=== PATIENT | female | born 1990 | race Caucasian/White ===

== ENCOUNTER 2018-05-23 21:49 | Observation (INO) | payer MEDICAID ==
[2018-05-23 21:49] VITALS: BMI 30.1
--- NOTE | 2018-05-23 21:55 | C.PDOC ---
History Of Present Illness 27 yr old female w/ hx of depression, iron def. anemia, asthma p/w headache. Pt notes headache started at 1pm today after taking too much of her trazodone. She notes that she was supposed to be taking 50mg of trazodone daily for depression, but accidentally took 200mg. She notes falling after feeling drowsy while taking her trazodone and notes head impact without LOC. No blood thinner usage. No pain in any other part of her body. No abdominal pain, chest pain, shortness of breath, constipation, diarrhea, dark or bloody stool, palpitations or GI or complaints. No fever, chills or night sweats. She denies any SI or HI. No FND. Headache is not worst of life, not sudden in onset, and without any FND. She denies any neck stiffness. No other complaints. Time Seen by Provider: 05/23/18 21:54 Chief Complaint (Nursing): Headache Past Medical History - Medical History PMH: Anxiety, Asthma, Gastritis, GERD - [facility] Procedures DELIVERY OF PRODUCTS OF CONCEPTION, EXTERNAL APPROACH (03/29/15) MONITORING OF POC, CARDIAC ELECTR ACTIVITY, REFUELING RAMPMAN APPROACH (03/29/15) Family History: States: Unknown Family Hx - Social History Hx Tobacco Use: No Hx Alcohol Use: No Hx Substance Use: No - Immunization History Hx Tetanus Toxoid Vaccination: Yes Hx Influenza Vaccination: No Hx Pneumococcal Vaccination: No Review Of Systems Constitutional: Negative for: Fever, Chills, Sweats, Weakness, Malaise Eyes: Negative for: Pain, Vision Change ENT: Negative for: Ear Pain, Ear Discharge, Nose Pain, Nose Discharge, Nose Congestion, Mouth Pain, Mouth Swelling Cardiovascular: Negative for: Chest Pain, Palpitations, Orthopnea, Edema, Light Headedness Respiratory: Negative for: Cough, Shortness of Breath, SOB with Excertion Gastrointestinal: Negative for: Nausea, Vomiting, Abdominal Pain, Diarrhea, Constipation, Melena, Hematochezia Genitourinary: Negative for: Dysuria, Frequency Musculoskeletal: Negative for: Neck Pain, Shoulder Pain, Arm Pain, Back Pain, Hand Pain, Leg Pain Skin: Negative for: Rash, Lesions, Jaundice Neurological: Positive for: Headache. Negative for: Weakness, Numbness, Incoordination, Change in Speech, Confusion, Seizures, Altered Mental Status Psych: Negative for: Anxiety, Depression, Psychosis, Suicidal ideation Physical Exam - Physical Exam Appears: Well, Non-toxic, No Acute Distress Skin: Normal Color, Warm Head: Atraumatic, Normacephalic Eye(s): bilateral: Normal Inspection, PERRL, EOMI Ear(s): Bilateral: Normal Nose: Normal, No Flaring, No Discharge Oral Mucosa: Moist Tongue: Normal Appearing, No Swelling, No Lesions Lips: Normal Appearing Teeth: Normal Dentition Gingiva: Normal Appearing Throat: Normal, No Erythema, No Exudate Neck: Normal, Normal ROM, Trachea Midline, No Midline Cervical Tenderness, Supple, Other (no meningeal signs) Lymphatic: Normal Exam, No Adenopathy Chest: Symmetrical, No Deformity, No Tenderness Cardiovascular: Rhythm Regular, No Edema, No Friction Rub, No Murmur, No JVD Respiratory: Normal Breath Sounds, No Accessory Muscle Use, No Rales, No Rhonchi, No Stridor, No Wheezing, No Plerual Rub Gastrointestinal/Abdominal: Normal Exam, Soft, No Tenderness, No Organomegaly, No Mass, No Distention, No Guarding, No Rebound, No Hernia Back: Normal Inspection, No CVA Tenderness, No Vertebral Tenderness Extremity: Normal ROM, No Tenderness, No Swelling Extremity: Bilateral: Atraumatic, Normal Color And Temperature, Normal ROM Pulses: Left Radial: Normal, Right Radial: Normal Neurological/Psych: Oriented x3, Normal Speech, Normal Cognition, Normal Cranial Nerves, No Cerebellar Signs, Normal Motor Gait: Steady ED Course And Treatment - Laboratory Results Result Diagrams: 05/23/18 22:09 05/23/18 22:09 Medical Decision Making Medical Decision Makin yr old F w/ hx of depression, anemia, asthma p/w headache. Headache after ingesting trazodone 200mg, without FND. No neuro abnls noted on exam, pt still notes HEDRICK however. No meningeal signs on exam. No fever. No signs of trauma on exam. No eye complaints. Will likely require crisis eval for "accidental" OD in the setting of pts known depression. No SOB or pallor on exam. Pending, labs + imaging 2308 CT unremarkable Crisis to evaluate patient EK, NSR, no stemi, no long QT pt endorsed continued HEDRICK, much improved but given continued HEDRICK, and recc from poison control for supportive care will needs obs appreciate consult w/ Dr. Barrett- to admit to his service Disposition - Disposition Disposition Time: 23:10 Condition: STABLE - Clinical Impression Clinical Impression: Headache, Overdose of trazodone, Drug induced headache
[2018-05-23] MEDS ORDERED: Sodium Chloride 0.9% 1,000 ML IV ONE (22:04)
[2018-05-23 22:12] LABS: BASO % 0.5 % (0.0-2.0); EOS # 0.1 K/uL (0.0-0.7); HEMOGLOBIN 11.8 g/dL (11.0-16.0); LYMPH # 2.1 K/uL (1.0-4.3); LYMPH % 23.3 % (20.0-40.0); MEAN CORPUSCULAR HEMOGLOBIN 25.4 pg (27.0-31.0); MEAN CORPUSCULAR HGB CONC 32.9 g/dL (33.0-37.0); MEAN PLATELET VOLUME 8.9 fL (7.2-11.7); MONO # 0.6 K/uL (0.0-0.8); MONO % 6.9 % (0.0-10.0); NEUT % 68.3 % (50.0-75.0); RBC 4.67 Mil/uL (3.80-5.20); RED CELL DISTRIBUTION WIDTH 20.5 % (11.5-14.5); WHITE BLOOD COUNT 8.8 K/uL (4.8-10.8)
[2018-05-23 22:16] LABS: MEAN CELL VOLUME 77.2 fL (81.0-99.0)
[2018-05-23 22:23] LABS: ACETAMINOPHEN < 10.0 ug/mL (10.0-30.0); SALICYLATE < 1.0 {null, mg/dL 1}
[2018-05-23 22:25] LABS: ALB/GLOB RATIO 1.5 (1.0-2.1); ALBUMIN 4.6 g/dL (3.5-5.0); ALT/SGPT 19 U/L (9-52); AST/SGOT 15 U/L (14-36); BLOOD UREA NITROGEN 12 mg/dL (7-17); CALCIUM 8.4 mg/dl (8.6-10.4); GFR NON-AFRICAN AMERICAN > 60
[2018-05-24 01:16] LABS: SQUAMOUS EPITHIAL 2 /hpf (0-5); URINE BILIRUBIN NEGATIVE (NEGATIVE); URINE BLOOD NEGATIVE (NEGATIVE); URINE CLARITY Clear (Clear); URINE COLOR Yellow (YELLOW); URINE GLUCOSE (UA) NORMAL (Normal); URINE LEUKOCYTE ESTERASE NEG Leu/uL (Negative); URINE PROTEIN 1+ mg/dL (NEGATIVE); URINE UROBILINOGEN NORMAL mg/dL (0.2-1.0)
[2018-05-24 01:34] LABS: BARBITURATES, UR NEGATIVE (NEGATIVE); BENZODIAZEPINES, UR NEGATIVE (NEGATIVE); OPIATES, UR NEGATIVE (NEGATIVE); PHENCYCLIDINE, UR NEGATIVE (NEGATIVE)
[2018-05-24] MEDS: Sodium Chloride 0.9% 1,000 ML IV SCH ×2 (09:08→19:23)
[2018-05-24] MEDS: Pantoprazole 40 mg EC Tab PO SCH (10:08)
--- NOTE | 2018-05-24 15:20 | CT ---
Date of service: 05/23/2018 PROCEDURE: CT HEAD WITHOUT CONTRAST. HISTORY: headache after accidental wellbutrin od COMPARISON: None available. TECHNIQUE: Axial computed tomography images were obtained through the head/brain without intravenous contrast. Radiation dose: Total exam DLP = 1052.85 mGy-cm. This CT exam was performed using one or more of the following dose reduction techniques: Automated exposure control, adjustment of the mA and/or kV according to patient size, and/or use of iterative reconstruction technique. FINDINGS: HEMORRHAGE: No intracranial hemorrhage. BRAIN: No mass effect or edema. No atrophy or chronic microvascular ischemic changes. VENTRICLES: Unremarkable. No hydrocephalus. CALVARIUM: Unremarkable. PARANASAL SINUSES: Unremarkable as visualized. No significant inflammatory changes. MASTOID AIR CELLS: Unremarkable as visualized. No inflammatory changes. OTHER FINDINGS: None. IMPRESSION: Normal CT of the Head. No intracranial mass, hemorrhage or evidence of acute infarct. The preliminary findings for this examination were reported by [facility] at 11:02 p.m. on 05/23/2018. There is concurrence of this report with the preliminary findings.
--- NOTE | 2018-05-24 15:32 | CT ---
Date of service: 05/23/2018 PROCEDURE: CT Cervical Spine without contrast HISTORY: sanz after wellbutrin od COMPARISON: None available. TECHNIQUE: Axial computed tomography images were obtained of the cervical spine without the use of intravenous contrast. Coronal and sagittal reformatted images were created and reviewed. Radiation dose: Total exam DLP = 476.51 mGy-cm. This CT exam was performed using one or more of the following dose reduction techniques: Automated exposure control, adjustment of the mA and/or kV according to patient size, and/or use of iterative reconstruction technique. FINDINGS: VERTEBRAE: The vertebral bodies are maintained in height. Normal alignment is maintained. There is straightening of the normal lordotic curvature indicating possible muscular spasm. The atlantoaxial articulation and odontoid process are intact. DISCS/SPINAL CANAL/NEURAL FORAMINA: No significant central canal or neural foraminal stenosis. Discs heights are grossly preserved. PARASPINAL SOFT TISSUES: Unremarkable. OTHER FINDINGS: None. IMPRESSION: Possible muscular spasm. Otherwise unremarkable examination. The preliminary findings for this examination were reported by [facility] at 11:02 p.m. on 05/23/2018. There is concurrence of this report with the preliminary findings.
--- NOTE | 2018-05-24 15:37 | CP.PCM.HP ---
Present on Admission - Present on Admission Any Indicators Present on Admission: No Past Patient History - Infectious Disease Hx of Infectious Diseases: None - Past Social History Smoking Status: Never Smoked - PULMONARY Hx Asthma: Yes - GASTROINTESTINAL Hx Gastritis: Yes - PSYCHIATRIC Hx Anxiety: Yes Hx Substance Use: No - ANESTHESIA Hx Anesthesia: No Meds Allergies/Adverse Reactions: Allergies Allergy/AdvReac Type Severity Reaction Status Date / Time Doxycycline Allergy Mild SWELLING Uncoded 05/23/18 22:03 Physical Exam - Constitutional Appears: Well - Head Exam Head Exam: ATRAUMATIC, NORMAL INSPECTION, NORMOCEPHALIC - Eye Exam Eye Exam: EOMI, Normal appearance, PERRL Pupil Exam: NORMAL ACCOMODATION, PERRL - ENT Exam ENT Exam: Mucous Membranes Moist, Normal Exam - Neck Exam Neck exam: Positive for: Normal Inspection - Respiratory Exam Respiratory Exam: Decreased Breath Sounds - Cardiovascular Exam Cardiovascular Exam: REGULAR RHYTHM, +S1, +S2 - GI/Abdominal Exam GI & Abdominal Exam: Diminished Bowel Sounds, Soft - Rectal Exam Rectal Exam: Deferred Results - Vital Signs Recent Vital Signs: Last Vital Signs Temp 98.4 F 05/24/18 07:38 Pulse 74 05/24/18 07:38 Resp 20 05/24/18 07:38 BP 93/57 L 05/24/18 07:38 Pulse Ox 100 05/24/18 12:00 - Labs Result Diagrams: 05/23/18 22:09 05/23/18 22:09 Labs: Laboratory Results - last 24 hr 05/23/18 05/23/18 05/23/18 22:09 22:09 22:09 WBC 8.8 RBC 4.67 Hgb 11.8 Hct 36.0 MCV 77.2 L D MCH 25.4 L MCHC 32.9 L RDW 20.5 H Plt Count 237 MPV 8.9 Neut % (Auto) 68.3 Lymph % (Auto) 23.3 [place] % (Auto) 6.9 Eos % (Auto) 1.0 Baso % (Auto) 0.5 Neut # (Auto) 6.0 Lymph # (Auto) 2.1 [place] # (Auto) 0.6 Eos # (Auto) 0.1 Baso # (Auto) 0.0 Sodium 136 Potassium 3.9 Chloride 101 Carbon Dioxide 25 Anion Gap 13 BUN 12 Creatinine 0.6 L Est GFR ( Amer) > 60 Est GFR (Non-Af Amer) > 60 Random Glucose 92 Calcium 8.4 L Phosphorus 3.2 Magnesium 1.9 Total Bilirubin 0.3 AST 15 ALT 19 Alkaline Phosphatase 48 Total Protein 7.6 Albumin 4.6 Globulin 3.0 Albumin/Globulin Ratio 1.5 Urine Color Urine Clarity Urine pH Ur Specific [place] Urine Protein Urine Glucose (UA) Urine Ketones Urine Blood Urine Nitrate Urine Bilirubin Urine Urobilinogen Ur Leukocyte Esterase Urine RBC (Auto) Ur Squamous Epith Cells Salicylates < 1.0 Urine Opiates Screen Urine Methadone Screen Acetaminophen < 10.0 L Ur Barbiturates Screen Ur Phencyclidine Scrn Ur Amphetamines Screen U Benzodiazepines Scrn U Oth Cocaine Metabols U Cannabinoids Screen Alcohol, Quantitative < 10 05/24/18 05/24/18 01:03 01:03 WBC RBC Hgb Hct MCV MCH MCHC RDW Plt Count MPV Neut % (Auto) Lymph % (Auto) [place] % (Auto) Eos % (Auto) Baso % (Auto) Neut # (Auto) Lymph # (Auto) [place] # (Auto) Eos # (Auto) Baso # (Auto) Sodium Potassium Chloride Carbon Dioxide Anion Gap BUN Creatinine Est GFR ( Amer) Est GFR (Non-Af Amer) Random Glucose Calcium Phosphorus Magnesium Total Bilirubin AST ALT Alkaline Phosphatase Total Protein Albumin Globulin Albumin/Globulin Ratio Urine Color Yellow Urine Clarity Clear Urine pH 8.0 Ur Specific [place] 1.017 Urine Protein 1+ H Urine Glucose (UA) Normal Urine Ketones 1+ H Urine Blood Negative Urine Nitrate Negative Urine Bilirubin Negative Urine Urobilinogen Normal Ur Leukocyte Esterase Neg Urine RBC (Auto) < 1 Ur Squamous Epith Cells 2 Salicylates Urine Opiates Screen Negative Urine Methadone Screen Negative Acetaminophen Ur Barbiturates Screen Negative Ur Phencyclidine Scrn Negative Ur Amphetamines Screen Negative U Benzodiazepines Scrn Negative U Oth Cocaine Metabols Negative U Cannabinoids Screen Negative Alcohol, Quantitative Assessment & Plan - Assessment and Plan (Free Text) Plan: Tylenol for headache Medicine reviewed Labs reviewed Creatinine is 0.6 Potassium is 3.9 Blood pressure is 93/57 GI DVT prophylaxis One-to-one watch Psych consultations Possible discharge tomorrow
[2018-05-25] MEDS: Sodium Chloride 0.9% 1,000 ML IV SCH ×2 (04:45→15:18)
--- NOTE | 2018-05-25 09:30 | CP.PCM.PN ---
Subjective - Date & Time of Evaluation Date of Evaluation: 05/25/18 Time of Evaluation: 09:30 - Subjective Subjective: PGY-2 Progress Note: 27 yr old female w/ hx of depression, iron def. anemia, asthma p/w headache came to the emergency department after taking too much of her Trazadone. She states she normally takes 50mg a day for depression but took four times that . She did report fall subsequently afterwards. Patient was seen and examined at bedside. Patient states she is feeling better but a little nausea. Patient denies any fevers, chills, chest pain, shortness of breath, syncopal episodes, or any other complaints. Medical history: depression, iron def. anemia, astham Allergies: Doxycyline Objective - Vital Signs/Intake and Output Vital Signs (last 24 hours): Temp Pulse Resp BP Pulse Ox 97.4 F L 76 16 97/60 L 100 05/25/18 00:27 05/25/18 00:27 05/25/18 00:27 05/25/18 00:27 05/25/18 03:51 Intake and Output: 05/25/18 05/25/18 06:59 18:59 Intake Total 1160 1100 Balance 1160 1100 - Medications Medications: Current Medications Acetaminophen (Tylenol 325mg Tab) 650 mg PO Q6 PRN PRN Reason: pain Last Admin: 05/24/18 16:02 Dose: 650 mg Sodium Chloride (Sodium Chloride 0.9%) 1,000 mls @ 100 mls/hr IV .Q10H AVIS Last Admin: 05/25/18 04:45 Dose: Not Given Ondansetron HCl (Zofran Inj) 4 mg IVP Q6 PRN PRN Reason: Nausea/Vomiting Last Admin: 05/24/18 20:17 Dose: 4 mg Pantoprazole Sodium (Protonix Ec Tab) 40 mg PO DAILY AVIS Last Admin: 05/24/18 10:08 Dose: 40 mg - Labs Labs: 05/23/18 22:09 05/23/18 22:09 - Head Exam Head Exam: ATRAUMATIC, NORMAL INSPECTION, NORMOCEPHALIC - Eye Exam Eye Exam: EOMI, Normal appearance, PERRL. absent: Periorbital tenderness Pupil Exam: NORMAL ACCOMODATION, PERRL. absent: Irregular, Unequal - ENT Exam ENT Exam: Mucous Membranes Moist, Normal Oropharynx - Respiratory Exam Respiratory Exam: Clear to Ausculation Bilateral, NORMAL BREATHING PATTERN. absent: Prolonged Expiratory Phase, Respiratory Distress - Cardiovascular Exam Cardiovascular Exam: REGULAR RHYTHM, +S1, +S2 - GI/Abdominal Exam GI & Abdominal Exam: Soft, Normal Bowel Sounds. absent: Hyperactive Bowel Sounds - Extremities Exam Extremities Exam: Full ROM, Normal Inspection. absent: Joint Swelling, Pedal Edema - Neurological Exam Neurological Exam: Alert, Awake, Oriented x3 - Psychiatric Exam Psychiatric exam: Normal Affect, Normal Mood. absent: Depressed Assessment and Plan - Assessment and Plan (Free Text) Assessment: 27 year old female with a past medical history of iron deficinecy anemia and depression presents with a sore throat. Plan: 1.Accidental overdose Head Ct: negative for any acute abnormality process Cervical neck ct:Possible muscular spasm. Otherwise unremarkable examination. Psychiatry Dr. Morales consulted---> Help appreciated Medications: Acetaminophen 650mg PO Q6 PRN Zofran 4MG ivp q6 PRN 2. HX of Fe deficiency anemia Continue to monitor H/H PPX Protonix 40mg PO DAILY All management per Dr. Mariann Barrett. Discharge Instructions: 1.F/u with PMD within 5 days of discharge. 2.F/[place] with [facility] [place]. 3. Return to hospital for any new or worsening symptoms. Carlos Rodas, PGY-2
[2018-05-25] MEDS: Pantoprazole 40 mg EC Tab PO SCH (09:49)
[2018-05-25 10:59] VITALS: RESP 20; O2SAT 99
--- NOTE | 2018-05-25 12:35 | CP.PCM.PCO ---
Physician Communication Note - Physician Communication Note Physician Communication Note: Case d/w Polly Shane. She is cleared for d/c F/U at [facility] Outpt
[2018-05-25 16:00] VITALS: BP 99/63; PULSE 75; TEMP 99.2
--- NOTE | 2018-05-25 22:34 | PCM.PSYCH ---
Initial Psychiatric Evaluation - Initial Psychiatric Evaluation Type of Admission: Voluntary Legal Status: Capacity Chief Complaint (in patient's own words): "I took Trazodone 200mg by mistake" History of Present Illness and Precipitating Events: Patient is a 27 year old female. This consult was made to assess for possible suicide attempt by overdosing on medication. Patient reports that she is prescribed Trazodone by her psychiatrist at [facility] for depression. She reports that her Trazodone was recently increased, and that she was given samples of Trazodone to take before filling her prescription. Patient reports that she did not read the directions on the sample that was given and instead took a whole pill instead of cutting in into half. Patient reports that a few minutes after taking the pill, she started feeling funny, and she was brought to the hospital. Patient denies this as a suicide attempt, and reports that this was a honest mistake. Patient reports that she would never want to hurt herself, and that her family really cares about her. She denies suicide or thoughts of self harm at this time. She also denies delusions, hallucinations, mitesh or hypomania. She has agreed to follow-up with her psychiatrist upon discharge. Past Psychiatric History - Past Psychiatric History Previous Treatment History: Partial Hospital Prior Professional Help: [facility] Pertinent Medical Hx (Current Medical&Sleep Prob, Allergies): Allergies Allergy/AdvReac Type Severity Reaction Status Date / Time Doxycycline Allergy Mild SWELLING Uncoded 05/23/18 22:03 No Known Home Med 05/24/18 Review of Systems - Psychiatric Psychiatric: As Per HPI, Abnormal Sleep Pattern, Depression Mental Status Examination - Personal Presentation Personal Presentation: Looks stated age - Affect Affect: Blunted - Motor Activity Motor Activity: Calm - Reliability in Providing Information Reliability in Providing Information: Fair - Speech Speech: Relevant, Coherent - Mood Mood: Neutral - Formal Thought Process Formal Thought Process: No Impairment - Obsessions/Compulsions Obsessions: No Compulsions: No - Cognitive Functions Orientation: Person, Place, Situation, Time Attention/Concentration: Attentive Abstract Thinking: As evidence by literal perception of proverbs Judgement: Intact, as evidence by: Insight regarding need for hospitalization Memory: Recent intact, as evidence by: Ability to recall events of the day - Risk Risk: Other - Strength & Assets Inventory Strength & Assets Inventory: Family support, Life experience, Cooperative DSM 5 DX - DSM 5 DSM 5 Diagnosis: Adjustment Disorder with depressed mood - Recommended/Plan of Treatment Treatment Recommendations and Plan of Treatment: Follow-up with your psychiatrist upon discharge Encourage compliance with meds and after care Teach healthy lifestyle methods, i.e. diet, exercise, meditation Projected ELOS: When medically cleared Discharge Plan and Discharge Criteria: To follow-up with her psychiatrist
--- NOTE | 2018-05-26 01:32 | CARD ---
APPROVED REPORT Date of service: 05/23/2018 EKG Measurement Heart [id number] OR [id number] [id number] <Conclusion> Normal sinus rhythm Normal ECG
== END 2018-05-25 17:17 | disposition home or self-care (01) ==
LOC: C.ER 21:49 → C.9E 23:43 → C.3T 05-24 02:21
PROVIDERS: ADMIT Internal Medicine Nephrology; ATTEND Internal Medicine Nephrology
DX: T43.211A Poisoning by selective serotonin and norepinephrine reuptake inhibitors, accidental (unintentional), initial encounter (principal); F43.21 Adjustment disorder with depressed mood; J45.909 Unspecified asthma, uncomplicated; K21.9 Gastro-esophageal reflux disease without esophagitis
CPT/HCPCS: 70450; 72125; 80053; 80320; 80324; 80329; 80345; 80346; 80349; 80353; 80358; 80361; 81001; 82948; 83735; 83992; 84100; 85025; 93005; 99285; G0378; J2405; J7030